=== PATIENT | female | born 1975 | race Two or more races ===

== ENCOUNTER 2017-02-11 07:05 | Emergency (ER) | payer MEDICAID ==
[~2017-02-11] VITALS: Ht 152.4 cm; Wt 77.1 kg
[2017-02-11 07:18] VITALS: BP 132/87
[2017-02-11] MEDS ORDERED: ONDANSETRON ODT 4 MG TAB PO ONE (07:30)
[2017-02-11 07:57] LABS: Basophils # (auto) 0.1 uL; Basophils % (auto) 0.4 % (0.0-2.0); Eosinophils # (auto) 0.2 uL; Eosinophils % (auto) 1.5 % (0.0-7.0); Hematocrit 39.6 % (36.0-46.0); Lymphocytes % (auto) 18.6 % (10.0-50.0); Mean Corpuscular Hemoglobin 28.8 pg (28.0-32.0); Mean Corpuscular Hgb Conc. 32.7 g/dL (32.0-36.0); Mean Corpuscular Volume 87.9 fL (80.0-100.0); Mean Platelet Volume 9.3 fL (6.9-10.8); Monocytes % (auto) 6.4 % (0.0-12.0); Neutrophils # (auto) 11.7 uL; Neutrophils % (auto) 73.1 % (37.0-80.0); Nucleated Red Blood Cells % 0.1 %; Platelet Count (auto) 243 10^3/uL (140-450); Red Cell Distribution Width 15.7 % (11.8-14.3); White Blood Cell 16.1 10^3/uL (4.4-10.8)
[2017-02-11 08:10] LABS: BUN/Creatinine Ratio 12.3; Bilirubin, Total 0.3 mg/dL (0.2-1.0); Calcium 8.8 mg/dL (8.5-10.1); Potassium 3.6 mmol/L (3.5-5.1); Total Protein 7.7 g/dL (6.4-8.2)
== END 2017-02-11 10:13 | disposition left against medical advice (07) ==
LOC: ER 07:05
DX: K52.9 Noninfective gastroenteritis and colitis, unspecified (principal); Z88.6 Allergy status to analgesic agent
CPT/HCPCS: 36415; 80053; 85025; 99284; Q0162